=== PATIENT | female | born 1945 | race Caucasian/White ===

== ENCOUNTER → 2017-07-15 | Outpatient (CLI) | payer MEDICARE ==
[2017-07-15] MEDS: IOHEXOL 240 MG/ML 50ML VIAL. PO (09:00)
[2017-07-15] MEDS: IOHEXOL 300 MG/ML 100ML VIAL. IV (09:00)
[2017-07-15 10:20] LABS: GFR 54.3
== END | disposition home or self-care (01) ==
LOC: CT 08:41
DX: K57.90 Diverticulosis of intestine, part unspecified, without perforation or abscess without bleeding (principal); I77.811 Abdominal aortic ectasia; I10 Essential (primary) hypertension; E78.5 Hyperlipidemia, unspecified; E78.00 Pure hypercholesterolemia, unspecified
CPT/HCPCS: 36415; 74177; 82565; Q9966; Q9967

== ENCOUNTER → 2017-08-16 | Outpatient (CLI) | payer MEDICARE | END | disposition home or self-care (01) | LOC: NM 08:10 | DX: K30 Functional dyspepsia (principal) | CPT/HCPCS: 78264; A9541 ==

== ENCOUNTER → 2019-03-21 | Outpatient (CLI) | payer MEDICARE ==
[2018-04-10 15:20] VITALS: BP 142/43
[~2019-03-21] MED LIST: ALPR0.5T6 PO; AMLO5TAB10 PO; ASPI-630 PO; ASPI325T11 PO; ATOR40TA59 PO; BYSTOLIC5 MG PO; OMEP20TA8 PO; PRED-220 PO; SIMV40TA18 PO; TRAM50TA PO
--- NOTE | 2019-03-21 17:47 | KCIC ---
MRI of the cervical spine without contrast 03/21/2019 Clinical history: Neck pain. TECHNIQUE: Unenhanced T1-weighted, T2-weighted and inversion recovery sagittal and gradient echo and T2-weighted axial images of the cervical spine were obtained. FINDINGS: Images from the study are degraded by patient motion. Very mild lateral curvature of the cervical spine is seen convex to the right. There is straightening of the normal cervical lordosis. Degenerative signal changes are seen involving all of the disks of the cervical spine. Degenerative signal changes are seen within the marrow surrounding these discs. A 4 mm hemangioma is seen involving the T6 vertebral body. A 7 mm hemangioma seen involving the T1 vertebral body. The cervical spinal cord is normal morphology, position, and signal characteristics. At the C2-3 and C3-4 disc spaces there are minimal to mild generalized disc bulges. Degenerative changes are seen involving the uncovertebral and facet joints bilaterally. These findings do not result in significant central spinal canal or neural foraminal stenosis. At the C4-5 disc space there is a mild generalized disc bulge. Degenerative changes are seen involving the uncovertebral and facet joints, left greater than right. These findings do not result in significant central spinal canal stenosis. Mild left neural foraminal stenosis is seen. The right neural foramen is patent. At the C5-6 disc space there is a mild generalized disc bulge. Degenerative changes are seen involving the uncovertebral and facet joints, right greater than left. These findings do not result in significant central spinal canal stenosis. Mild right neural foraminal stenosis is seen. The left neural foramen is patent. At the C6-7 disc space there is a mild generalized disc bulge. Degenerative changes are seen involving the uncovertebral and facet joints bilaterally. These findings do not result in significant central spinal canal or definite neural foraminal stenosis. At the C7-T1 disc space there is a minimal generalized disc bulge. Degenerative changes are seen involving the facet joints bilaterally. These findings do not result in significant central spinal canal or neural foraminal stenosis. IMPRESSION: Degenerative changes are seen throughout the cervical spine. These findings do not result in significant central spinal canal stenosis at any level. Mild left neural foraminal stenosis is seen at C4-5. Mild right neural foraminal stenosis is seen at C5-6. Electronically signed by: Matt Edmonds MD (03/21/2019 5:44 PM) [email or web address]
--- NOTE | 2019-03-21 17:54 | KCIC ---
MRI of the thoracic spine without contrast 03/21/2019 CLINICAL HISTORY: Mid back pain with left arm and shoulder pain. TECHNIQUE: Unenhanced T1-weighted, T2-weighted and inversion recovery sagittal and T1-weighted and T2-weighted axial images of the thoracic spine were obtained. T2-weighted sagittal images of the cervical, thoracic and lumbar spine were obtained for localization purposes. FINDINGS: Very mild S-shaped curvature of the thoracolumbar spine is seen. There is accentuation of the normal thoracic kyphosis. Degenerative signal changes are seen involving all of the disks of the thoracic spine. Degenerative signal changes are seen within the marrow surrounding these discs. A 7 mm hemangioma is seen involving the T1 vertebral body. The thoracic spinal cord is normal morphology, position, and signal characteristics. Scattered areas of signal abnormality are seen within the right lung which measure 8 mm to 2.7 cm in size. They are not well evaluated on this study. They could represent focal areas of atelectasis and/or infiltrate. Mass lesions are not excluded. Degenerative changes are seen throughout the thoracic disc spaces consisting of minimal to mild generalized disc bulges, small scattered focal central disc protrusions and degenerative changes involving the facet joints. A central/left paracentral disc osteophyte complex is seen at T10-11 which measures 3.5 mm in AP diameter. This results in mild left greater than right central spinal canal stenosis without evidence of cord impingement. No additional area of significant central spinal canal stenosis is seen. No neural foraminal stenosis is noted. IMPRESSION: Degenerative changes are seen throughout the thoracic spine. These findings results in mild left greater than right central spinal canal stenosis at T10-11 without evidence of cord impingement. No neural foraminal stenosis is seen. Electronically signed by: Matt Edmonds MD (03/21/2019 5:51 PM) [facility]
== END | disposition home or self-care (01) ==
LOC: KCIC MRI 14:31
PROVIDERS: ATTEND Family Medicine
DX: M50.23 Other cervical disc displacement, cervicothoracic region (principal); M51.24 Other intervertebral disc displacement, thoracic region; M48.04 Spinal stenosis, thoracic region
CPT/HCPCS: 72141; 72146

== ENCOUNTER → 2019-03-30 | Outpatient (CLI) | payer MEDICARE ==
[2018-04-10 15:20] VITALS: BP 142/43
[~2019-03-30] MED LIST changes: +IOHEXOL 180 MG/ML 10 ML VIAL. ONE; +methylPREDNISolone ACETATE 40 MG/ML VIAL. ONE; +methylPREDNISolone ACETATE 80 MG/ML VIAL. ONE
--- NOTE | 2019-03-31 02:37 | CONS ---
DATE OF CONSULTATION: 03/30/2019 INITIAL CONSULTATION FOR PAIN CLINIC CHIEF COMPLAINT: Neck and right upper extremity pain. HISTORY OF PRESENT ILLNESS: This is a 73-year-old female who presents with history of pain in the neck and the right greater than left upper extremity, but present bilaterally for many years. The patient reports it is getting worse over the past year or so, worse with activity, increasing raising, repetitive motions of the right arm, raising her hand above her head, doing any repetitive motion such as driving a car, lifting items. He is having some difficulty with some fine motor movements as well as on the right hand with buttoning shirts and fine motor movements, also been dropping things and some tingling in the hand as well. The patient reports it has been going on now for about a year on and off, worse in intensity, recently over the past few weeks the patient reports it awakens her from sleep at night at least 3 times a night, does not affect her bowel or bladder control, sometimes affect her ability to walk, but not always. The patient has tried naproxen, hydrocodone, cyclobenzaprine, all of which do decrease the pain by about 20%. The patient has had chiropractic treatment and doing exercise currently, in neither of which she just had decrease in pain. Reports that she has had epidural injections in the past and these have helped as well. The patient reports no loss of motor function, but significant fatigability, especially the right upper extremity with any weightbearing, exercises or repetitive motion. The patient did have an MRI scan of the cervical spine showing multilevel degenerative changes throughout the cervical spine with C5-C6 disk space mild generalized disk bulge, also disk bulge at C4-C5, C2-C3, C3-C4 and C6-C7 with C5-C6 showing mild right neural foraminal stenosis and right neural foraminal stenosis at C6-C7 to a mild extent, but not definitively. The patient rates her disability rating from 0-10, 10 being the worst, is 6 with family home responsibilities, 8 with recreation, 7 with social activity, 9 with occupation, 0 with sexual behavior and 7 with self-care and life support activities. PAST MEDICAL HISTORY: Significant for hypertension, asthma, cigarette smoking half pack a day, arthritis, osteoporosis and headaches. PREVIOUS SURGERY: Include appendectomy, cholecystectomy, bilateral LASIK procedure and partial hysterectomy in 1971. CURRENT MEDICATIONS: Include amlodipine, atorvastatin, tramadol, alprazolam, omeprazole and daily baby aspirin. ALLERGIES: THE PATIENT IS ALLERGIC TO CODEINE. FAMILY HISTORY: Significant for heart disease, hypertension and cancer. SOCIAL HISTORY: The patient does not drink alcohol. Smokes about half a pack of cigarettes a day and has for 40 years. Does not use any illegal, illicit or recreational drugs. She is , lives with her spouse, lives locally in [place]. Reports she is currently retired. REVIEW OF SYSTEMS: The patient's review of systems is positive for those items mentioned in history of present illness. All systems reviewed and otherwise negative. It is complete, full and well documented on the patient's chart. PHYSICAL EXAMINATION: VITAL SIGNS: The patient's blood pressure is 135/75, pulse 81, respirations 16, temperature is 98.1 degrees Fahrenheit, height is 5 feet 2 inches and weight is 134 pounds. GENERAL: The patient is awake, alert, oriented, appropriate, very pleasant demeanor. HEENT: Head shows normocephalic, atraumatic. Extraocular movements are intact and symmetrical. Oral cavity: Mucous membranes moist and pink. Dentition is intact. NECK: Shows anterior throat supple without palpable lymphadenopathy noted. Swallow reflex symmetrical. CHEST: Shows normal on inspection. Breath sounds are clear bilaterally. HEART: Shows S1, S2 clear. No murmurs auscultated. ABDOMEN: Soft, nontender, nondistended. No palpable organomegaly is noted. No rebound or guarding demonstrated. BACK: Shows spine grossly in the midline. Normal appearing thoracic kyphosis, cervical lordotic curvature and lumbar lordotic curvature. Cervical paraspinous muscle shows symmetrical on inspection, on palpation shows some moderate tenderness diffusely without significant radiation. The patient shows good rotational motion of cervical spine, both laterally as well as extension and flexion without significant difficulty. Some mild guarding with far left rotation only with pain in the right side at the base of the neck. EXTREMITIES: The patient's upper extremities show deep tendon reflexes at 2+ in the biceps and triceps tendons. Motor exam is approximately 4 on a scale of 5 on the left, 5/5 on the right. Peripheral pulses are 2+ radial distribution. No peripheral edema is noted. Shoulder shrug is strong and intact with some moderate tenderness with resistance, but no loss of strength or resistance as is abduction of shoulders at 90 degrees without loss of strength or resistance with some moderate tenderness on right and left with moderate tenderness with resistance, again no loss of strength bilaterally. The patient's lower extremities show deep tendon reflexes at 1+ in the patellar and tendo calcaneus tendons. Motor exam is strong with 5/5 dorsiflexion, extension, quadriceps and hamstring flexion. Peripheral pulses are 1+ posterior tibial and symmetrical. No peripheral edema is noted in the lower extremities as well. SKIN: The patient's skin shows warm and dry, good turgor. No edema. No sores, rashes or bruising throughout. IMPRESSION: 1. This is a 73-year-old female with long history of pain in the base of the neck, upper extremities, right and left, somewhat worse on the right, also low back pain with bilateral lower extremity pain, more on the right than the left. 2. MRI scan of cervical spine as noted. 3. Hypertension. 4. Cigarette smoking. 5. Arthritis. PLAN: Options were discussed with the patient including conservative medical managements, physical therapies and interventional techniques. He would like to pursue interventional techniques. We discussed cervical epidural steroid injection using description as well as anatomical models to describe the procedure. Risks were then discussed including, but not limited to bleeding, infection, possibility of epidural hematoma, subsequent neurological compromise, dural puncture, headaches, spinal cord and/or nerve damage, side effects of steroid medication and poor results regarding pain control. The patient understands and wished to proceed. The patient will return to clinic in approximately 2 weeks for followup. She was counselled on return appointment, activity level and side effects to be aware of. DIAGNOSIS: Cervical radiculopathy with cervical degenerative disk disease. PROCEDURE: Cervical epidural steroid injection, translaminar approach C6-C7 level using C-arm fluoroscopic guidance under sterile prep and drape using local anesthetic. MEDICATION INJECTED: A total of 120 mg Depo-Medrol plus 5 mL of preservative-free normal saline and 2 mL of contrast. CONDITION AT DISCHARGE: Stable. The patient tolerated the procedure well, had no complications. MIGUEL EPSTEIN MD DR: CHINMAY/david JOB#: [id number] / [id number] BAN MayA DO
== END | disposition home or self-care (01) ==
LOC: PNCL 08:41
PROVIDERS: ATTEND Anesthesiology
DX: M50.123 Cervical disc disorder at C6-C7 level with radiculopathy (principal); I10 Essential (primary) hypertension; J45.909 Unspecified asthma, uncomplicated; M19.90 Unspecified osteoarthritis, unspecified site; M81.0 Age-related osteoporosis without current pathological fracture; F17.210 Nicotine dependence, cigarettes, uncomplicated; Z90.49 Acquired absence of other specified parts of digestive tract; Z90.710 Acquired absence of both cervix and uterus; Z79.899 Other long term (current) drug therapy; Z98.890 Other specified postprocedural states; Z79.82 Long term (current) use of aspirin; Z88.6 Allergy status to analgesic agent; Z82.49 Family history of ischemic heart disease and other diseases of the circulatory system
CPT/HCPCS: 62321; J1030; J1040; Q9965

== ENCOUNTER → 2019-04-28 | Outpatient (CLI) | payer MEDICARE ==
[2018-04-10 15:20] VITALS: BP 142/43
[~2019-04-28] MED LIST changes: -IOHEXOL 180 MG/ML 10 ML VIAL. ONE; -methylPREDNISolone ACETATE 40 MG/ML VIAL. ONE; -methylPREDNISolone ACETATE 80 MG/ML VIAL. ONE
--- NOTE | 2019-04-28 13:58 | KCIC ---
Indication: Indication: Postmenopausal screening for osteoporosis.. COMPARISON: None available. Bone Density: -BMD: (g/cm2) - AP Spine Total (L1-L4).......... 1.151. - Total left Hip................. 0.842. T-Score: - AP Spine Total (L1-L4)......... 0.9. - Total left Hip................. -0.8. Z-Score: - AP Spine Total (L1-L4).......... 3.4. - Total left Hip................. 1.0. World Health Organization criteria for BMD interpretation classify patients as Normal (T-score at or above -1.0), Osteopenic (T-score between -1.0 and -2.5), or Osteoporotic (T-score at or below -2.5). Impression: 1. AP Spine Total L1-L4--- normal.. 2. Total left Hip--- normal.. . Electronically signed by: Brooks Conway MD (04/28/2019 1:56 PM) [id number]
== END ==
LOC: KCIC DEXA 09:40
PROVIDERS: ATTEND Family Medicine
DX: N95.8 Other specified menopausal and perimenopausal disorders (principal)
CPT/HCPCS: 77080

== ENCOUNTER → 2019-05-01 | Outpatient (CLI) | payer MEDICARE ==
[2018-04-10 15:20] VITALS: BP 142/43
[~2019-05-01] MED LIST changes: +IOHEXOL 180 MG/ML 10 ML VIAL. ONE; +methylPREDNISolone ACETATE 40 MG/ML VIAL. ONE; +methylPREDNISolone ACETATE 80 MG/ML VIAL. ONE
--- NOTE | 2019-05-02 06:46 | PAIN ---
DATE OF SERVICE: 05/01/2019 PROGRESS NOTE FOR PAIN CLINIC DIAGNOSES: 1. Cervical radiculopathy with cervical degenerative disk disease. 2. Lumbar radiculopathy with lumbar degenerative disk disease. HISTORY OF PRESENT ILLNESS: The patient is a 73-year-old female who returns for followup status post cervical epidural steroid injection x 1 on 03/30/2019. The patient reports for the first week or so she had fairly good relief about 50% or so, but now obtained about 30% relief in the neck and shoulders, upper extremities, especially on the left side. The patient reports she has had some significant cramping in the hands as well as in the feet and the lower extremities, especially at night, much worse than it was on her last visit. The patient reports the pain in her neck and shoulders as a 10 on a scale of 10 at its worst over the past week, 10 on average, 9 at its least and is a 10 today. The patient reports it is aching type, shooting, stabbing, burning, tingling, constant, becoming more severe, non-bearable especially with the cramping at night. The patient reports no new motor or sensory deficits, no new bowel or bladder incontinence or other complaints. PHYSICAL EXAMINATION: VITAL SIGNS: The patient's blood pressure 154/89, pulse 93, respirations are 16, and temperature is 97.9 degrees Fahrenheit. Weight is 131 pounds. GENERAL: The patient is awake, alert, oriented, appropriate, very pleasant demeanor. HEENT: Head shows normocephalic, atraumatic. Extraocular movements are intact and symmetrical. Oral cavity: Mucous membranes moist and pink. Dentition is intact. NECK: Shows anterior throat supple without palpable lymphadenopathy noted. Swallow reflex symmetrical. CHEST: Shows normal on inspection. Breath sounds are clear bilaterally. HEART: Shows S1, S2 clear. ABDOMEN: Soft, nontender, nondistended. BACK: Shows spine grossly in the midline. Cervical paraspinous muscle shows symmetrical on inspection, on palpation shows some mild tenderness inferiorly, more on the left than the right in the superior medial trapezius, inferior cervical paraspinous musculature shows some mild tenderness on the right trapezius as well, but much worse on the left with very firm rope-like musculature in the left trapezius, which is quite tender without specific radiation. The patient has good rotational motion of cervical spine, both laterally as well as extension and flexion without significant increase in pain. EXTREMITIES: Upper extremities show deep tendon reflexes 2+ in the biceps and triceps tendons. Motor exam is approximately 4 on a scale of 5 on the left with awning installer strength, bicep and tricep flexion 5/5 on the right. Peripheral pulses are 2+ radial. No peripheral edema is noted. Options were discussed with the patient. The patient's old chart was reviewed as her current medication regimen updated. Current review of systems updated today as well. We will proceed with a second in this series of cervical epidural steroid injection today with fluoroscopic guidance. Risks were again discussed including, but not limited to bleeding, infection, possibility of epidural hematoma, subsequent neurological compromise, dural puncture, headaches, spinal cord and/or nerve damage, side effects of steroid medication and poor results regarding pain control. The patient understands and wished to proceed. The patient will return to clinic in approximately 2 weeks for followup. She was counseled as to return appointment, activity level and side effects to be aware of. DIAGNOSES: Cervical radiculopathy with cervical degenerative disk disease. PROCEDURE: Cervical epidural steroid injection, translaminar approach C6-C7 level C-arm fluoroscopic guidance under sterile prep and drape using local anesthetic. MEDICATION INJECTED: A total of 120 mg Depo-Medrol plus 5 mL of preservative-free normal saline and 2 mL of contrast. CONDITION AT DISCHARGE: Stable. The patient tolerated the procedure well, had no complications. MIGUEL EPSTEIN MD DR: CHINMAY/david JOB#: [id number] / [id number]
== END ==
LOC: PNCL 13:59
PROVIDERS: ATTEND Anesthesiology
DX: M50.123 Cervical disc disorder at C6-C7 level with radiculopathy (principal); M51.16 Intervertebral disc disorders with radiculopathy, lumbar region
CPT/HCPCS: 62321; J1030; J1040; Q9965